=== PATIENT | male | born 1985 | race Caucasian/White ===

== ENCOUNTER → 2020-02-11 | Outpatient (CLI) | payer BC, OTHER ==
[~2020-02-11] MED LIST: HYDACE5325 PO; IBUP800 PO; Macrobid 100 M100 MG PO; PENVK500 PO; PROACE100 PO
[2020-02-14 09:07] LABS: CHLAMYDIA BY NAA Negative (Negative); GONOCOCCUS BY NAA Positive (Negative); TRICH VAG BY NAA Negative (Negative)
== END ==
LOC: LAB EV 19:01 → LAB SHORT 19:01
PROVIDERS: Emergency Medicine
DX: Z72.51 High risk heterosexual behavior (principal)
CPT/HCPCS: 87491; 87591; 87661